=== PATIENT | male | born 1955 | race Caucasian/White ===

== ENCOUNTER 2023-03-01 09:24 | Outpatient (CLI) | payer MEDICARE ==
--- NOTE | 2023-03-01 12:06 | Ultrasound Report ---
PROCEDURE: Aorta Screening INDICATIONS: ENCOUNTER FOR SCREENING FOR CARDIOVASCULAR DISORDE TECHNIQUE: Real time scanning was performed of the aorta and iliac arteries, with image documentatio n. COMPARISON: None. FINDINGS: Aorta: Proximal aortic diameter measures 2.6 cm. Mid-aorta measures 1.8 cm. Distal aortic diameter is 1.9 cm. Iliac arteries: Right common iliac artery measures 1.0 cm. Left common iliac artery measures 0.9 cm . Incidental note of hepatic steatosis. 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 Recommended intervals for follow-up imaging of ectatic aortas and abdominal aortic aneurysms, per ACR consensus guidelines: 2.5-2.9 cm: 5 years 3.0-3.4 cm: 3 years 3.5-3.9 cm: 2 years 4.0-4.4 cm: 1 year 4.5-4.9 cm: 6 months + endovascular referral 5.0-5.5 cm: 3-6 months + endovascular referral Reviewed by: Stan Augustin MD on 03/01/2023 12:05 PM PST Approved by: Stan Augustin MD on 03/01/2023 12:05 PM PST Station ID: [id number]
== END 2023-03-01 09:25 | disposition home or self-care (01) ==
LOC: DI 09:24
PROVIDERS: ATTEND Student in an Organized Health Care Education/Training Program
DX: Z13.6 Encounter for screening for cardiovascular disorders (principal); I77.811 Abdominal aortic ectasia